=== PATIENT | male | born 1990 | race African-American/Black ===

== ENCOUNTER → 2018-11-09 | Outpatient (CLI) | payer OTHER ==
--- NOTE | 2018-11-09 17:21 | RAD ---
Pelvic ultrasound History: Pelvic pain right lower quadrant Comparison: None. Findings: Multiple transabdominal sonographic images of the pelvis are submitted. Uterus measured 7.5 x 4.1 x 4.9 cm. There is no significant free fluid. Endometrium is thin about 0.4 cm. Right ovary measured 3 x 1.2 x 1.8 cm with normal low resistance vascularity. Left ovary measured 2.4 x 1.5 x 1.7 cm, normal low resistance vascularity. Impression: 1. No significant abnormality is demonstrated. Electronically signed by: Claude Uribe MD (11/09/2018 5:18 PM) [id number]
== END | disposition home or self-care (01) ==
LOC: US 14:43
PROVIDERS: ATTEND Physician Assistant Medical
DX: R10.2 Pelvic and perineal pain (principal); R10.31 Right lower quadrant pain
CPT/HCPCS: 76856